=== PATIENT | female | born 1985 | race Two or more races ===

== ENCOUNTER 2017-10-23 07:09 | Day surgery (SDC) | payer OTHER ==
[2017-10-22 15:41] VITALS: BMI 28.3
[2017-10-23] MEDS ORDERED: MIDAZOLAM HCL 2 MG/2 ML SINGLE DOSE VIAL ONE (07:56)
[2017-10-23] MEDS ORDERED: PROPOFOL 20 ML ONE ×3 (08:12)
[2017-10-23] MEDS ORDERED: SUCCINYLCHOLINE CHLORIDE 200 MG/10 ML VIAL ONE (08:13)
[2017-10-23] MEDS ORDERED: LIDOCAINE HCL/PF 2% SDV 5ML VIAL ONE (08:20)
[2017-10-23] MEDS ORDERED: DEXAMETHASONE SOD PHOSPHATE 4 MG/1 ML VIAL ONE (08:20)
[2017-10-23] MEDS ORDERED: ONDANSETRON 4 MG/2 ML VIAL ONE (08:20)
[2017-10-23] MEDS ORDERED: ceFAZolin SODIUM 1 GM VIAL ONE (08:28)
[2017-10-23] MEDS ORDERED: BUPIVACAINE HCL/PF 2.5 MG/ML - 30 ML VIAL IJ ONE (08:49)
[2017-10-23] MEDS ORDERED: BACITRACIN 15 GM TUBE TOPICAL OINTMENT ONE (08:56)
[2017-10-23] MEDS ORDERED: BUPIVACAINE HCL/PF 0.25% (2.5MG/ML) 10 ML VIAL IJ ONE (09:00)
[2017-10-23] MEDS ORDERED: ONDANSETRON 4 MG/2 ML VIAL IVPUSH PRN (09:13)
[2017-10-23] MEDS ORDERED: oxyCODONE HCL 5 MG TABLET PO PRN ×3 (09:13→09:16)
[2017-10-23] MEDS ORDERED: LACTATED RINGERS SOLUTION 1,000 ML IV SCH ×2 (09:15→09:30)
[2017-10-23] MEDS ORDERED: ONDANSETRON 4 MG/2 ML VIAL IVPB PRN (09:16)
--- NOTE | 2017-10-23 09:19 | OP ---
Operative Note - Note: Operative Date: 10/23/17 Pre-Operative Diagnosis: left wrist dorsal ganglion cyst Operation: excisio of left wrist dorsal ganglion cyst Post-Operative Diagnosis: Same as Pre-op Anesthesia: General Operative Report Dictated: Yes
[2017-10-23 09:38] VITALS: TEMP 97.8
--- NOTE | 2017-10-23 09:38 | OP ---
DATE OF OPERATION: 10/23/2017 TITLE OF PROCEDURE: Left dorsal wrist ganglion cyst excision. PREOPERATIVE DIAGNOSIS: Left dorsal wrist ganglion cyst. POSTOPERATIVE DIAGNOSIS: Left dorsal wrist ganglion cyst. ATTENDING SURGEON: Andres Hanson MD CLINICAL PRACTICE CONSULTANT: No assistants. ANESTHESIA: General endotracheal anesthesia, a total of 2 mL of 0.25% Marcaine plain was given as a local anesthetic at the end of the procedure. DESCRIPTION OF PROCEDURE: The patient was marked at the appropriate side and site in the holding area. Risks, benefits, and alternatives were thoroughly discussed, understood, and patient agreed to proceed. The patient was brought to the operating room and placed in a supine position. All pressure points were carefully padded and checked by surgical and anesthesia teams. Sequential compression devices were applied. Patient was then prepped and draped in standard surgical fashion. A time-out was called. Patient, procedure, side and sites were verified. Hand was elevated. Esmarch exsanguinated. Tourniquet was elevated to 225 mmHg for a total tourniquet time of 20 minutes. A longitudinal incision was made overlying the palpable mass. Dissection was carried down under direct vision with loupe magnification to the level of the mass which was identified in the subcutaneous space. Blunt spreading was unable to dissect the mass from the surrounding tissues. Small blood vessels crossing the mass were coagulated with bipolar cautery. The mass was then dissected to its origin on the extensor retinaculum. It was removed off the base of the retinaculum as it was continuous with the synovial compartment overlying the extensor tendons. All tendons remained intact. The mass was delivered en bloc and handed it to a specimen. The wounds were copiously irrigated with normal saline. The base of it as well as the area of the flexor retinacular defect was closed with a [id number]-pt-pilaw 4-0 Vicryl suture. After copious irrigation, the skin was closed first with a buried deep dermal 4-0 Vicryl suture followed by a series of interrupted vertical mattress 5-0 nylon sutures. The tourniquet was released. Hand was pink and viable. The dressing was applied with Bacitracin, Xeroform, and a bulky dressing with Webril and 2-inch JUDIE wrap. Hand was elevated with a sling. Fingertips were all pink and viable. Patient was awoken from anesthesia, transferred to recovery without complications. Radha [id number]
[2017-10-23 10:41] VITALS: BP 101/68; PULSE 57
--- NOTE | 2017-10-28 16:06 | PATH ---
Surgical Pathology Report Patient Name: MARLENE BOYER [facility] Rec. #: [id number] /Age/Gender: 1985 (Age: 32) / F Account: [id number] Location: [facility] Taken: 10/23/2017 Received: 10/23/2017 Reported: 10/28/2017 Physicians: Andres Hanson Specimen(s) Received LEFT WRIST GANGLION CYST Clinical History Left wrist ganglion cyst Final Diagnosis GANGLION CYST, LEFT WRIST, EXCISION: GANGLION CYST. Electronically Signed Diana Wells M.D. Gross Description Received in formalin labeled "left wrist ganglion cyst," is a 2.0 x 0.8 x 0.4 cm intact cystic structure containing clear mucinous material. The specimen is bisected and entirely submitted in one cassette. /10/27/201710/27/2017
== END 2017-10-23 10:40 | disposition home or self-care (01) ==
LOC: FASU 07:09 → EDBD 08:30 → FASU 10:40
PROVIDERS: ATTEND Plastic Surgery
PROC: 0LB60ZZ Excision of Left Lower Arm and Wrist Tendon, Open Approach (ICD-10-PCS; principal; 2017-10-23 08:38)
DX: M67.432 Ganglion, left wrist (principal)
CPT/HCPCS: 84703; 88304-TC; 94760

== ENCOUNTER 2019-01-25 08:20 | Day surgery (SDC) | payer OTHER ==
[2019-01-24 13:09] VITALS: BMI 28.3
--- NOTE | 2019-01-25 07:52 | HP ---
History & Physical Update - History History: No Change - Physical Physical: No Change - Assessment Assessment: No Change - Plan Plan: No Change (Consent signed and witnessed)
--- NOTE | 2019-01-25 07:52 | OP ---
Operative Note - Note: Operative Date: 01/25/19 Pre-Operative Diagnosis: 33yo P 3 with vulva pain, vulva cyst, dyspareunia Operation: Vulva cyst/abcess exision Findings: 5-7mm vulva cyst Post-Operative Diagnosis: Same as Pre-op Surgeon: Pam Vasquez Anesthesiologist/FEEDER WORKER POWER UNIT OPERATOR: Randa White Anesthesia: MAC Specimens Removed: Pereneal skin with inclusion abscess Estimated Blood Loss (mls): 200 Fluid Volume Replaced (mls): 500 Operative Report Dictated: Yes
[~2019-01-25 08:20] MED LIST: BUPIVACAINE HCL/PF 0.5% (5 MG/ML) 30 ML VIAL IJ ONE; ELECTROLYTE-148 SOLN 1,000 ML IV SCH; IBUPROFEN 600 MG TABLET (FP) PO PRN; IBUPROFEN 800 MG/8 ML IJ IVPB PRN; MIDAZOLAM HCL 2 MG/2 ML SINGLE DOSE VIAL ONE; ONDANSETRON 4 MG/2 ML VIAL IVPUSH PRN; PROPOFOL 20 ML ONE; ROCURONIUM BROMIDE 50 MG/5 ML SYRINGE ONE; SUCCINYLCHOLINE CHLORIDE 200 MG/10 ML SYRINGE ONE; ceFAZolin SODIUM 1 GM VIAL IVPB ONE; oxyCODONE HCL 5 MG TABLET PO PRN
[2019-01-25] MEDS ORDERED: PROPOFOL 20 ML ONE (08:26)
[2019-01-25] MEDS ORDERED: LACTATED RINGERS SOLUTION 1,000 ML IV SCH (09:00)
[2019-01-25] MEDS ORDERED: IBUPROFEN 600 MG TABLET (FP) PO ONE ×2 (11:16→11:20)
[2019-01-25 12:06] VITALS: PULSE 68; TEMP 97.8
[2019-01-25 12:24] VITALS: BP 116/56
--- NOTE | 2019-01-26 06:16 | OP ---
DATE OF OPERATION: DATE OF DICTATION: 01/25/2019 PREOPERATIVE DIAGNOSIS: A 33-year-old para 3 with vulvar pain, vulvar cyst and dyspareunia. OPERATION: Vulvar cyst abscess excision. FINDINGS: A 5 x 7-mm vulvar cyst with pustulous exudate. POSTOPERATIVE DIAGNOSIS: A 33-year-old para 3 with vulvar pain, vulvar cyst and dyspareunia. SURGEON: Pam Vasquez MD ANESTHESIOLOGIST: VESNA Alston- ANESTHESIA: MAC. SPECIMEN REMOVED: Perineal skin with pustulous inclusion cyst. DESCRIPTION OF THE OPERATIVE PROCEDURE: After assuring informed consent patient was brought to the operating room where she was placed in dorsal lithotomy position. Perineum and vagina were prepped and draped in sterile fashion. Patient received Ancef antibiotics. Subsequently the blade No. 15 was used to excise posterior vaginal wall and the perineal skin in the form of 2 triangles, 1 vaginal and 1 perineal. Bleeding noted and dilute solution of vasopressin was injected. Subsequently the 2-0 Vicryl was used to repair the defect starting from the vaginal mucosa and finishing with perineal skin. Excellent hemostasis was noted. The closure was similar to episiotomy repair. The diluted solution of Marcaine was infused into the perineum. Patient tolerated procedure well. Estimated blood loss 200 mL. Patient received 500 mL of IV fluids. All sponge and instrument count was correct x2. The cyst was opened intraoperatively and was found to have pustulous exudate and was cultured. Patient was brought to the recovery room in stable extubated condition. Radha [id number]
--- NOTE | 2019-01-26 17:06 | PATH ---
Surgical Pathology Report Patient Name: MARLENE BOYER [facility]. Rec. #: [id number] /Age/Gender: 1985 (Age: 33) / F Account: [id number] Location: [facility] SURGICAL Taken: 01/25/2019 Received: 01/25/2019 Reported: 01/26/2019 Physicians: Pam Vasquez M.D. Specimen(s) Received PERINEAL CYST/ABSCESS Clinical History Cyst of vulva, vulvar pain and dyspareunia Final Diagnosis PERINEAL CYST/ABSCESS, EXCISION: PORTION OF SQUAMOUS MUCOSA WITH INTRADERMAL CYST LINED BY BENIGN COLUMNAR/CUBOIDAL EPITHELIUM WITH FOCAL EPITHELIAL DENUDATION, CHRONIC INFLAMMATION AND MARKED HISTIOCYTIC REACTION. Electronically Signed Marisa Shipley M.D. Gross Description Received in formalin labeled "perineal cyst/abscess," is a 3.2 x 1.5 x 1.0 cm lópez-brown, unoriented portion of skin and soft tissue. Sectioning reveals a possible abscess. [facility] sections are submitted in one cassette. /01/25/2019 [facility]01/25/2019
== END 2019-01-25 12:20 | disposition home or self-care (01) ==
LOC: JASU-SURG 08:20
PROVIDERS: ATTEND Obstetrics & Gynecology
PROC: 0UBMXZZ Excision of Vulva, External Approach (ICD-10-PCS; principal; 2019-01-25 07:30)
DX: N90.7 Vulvar cyst (principal)
CPT/HCPCS: 87070; 87077; 87205; 88305-TC; 94760